=== PATIENT | female | born 1980 | race Two or more races ===

== ENCOUNTER 2018-05-30 12:00 | Emergency (ER) | payer SELFPAY ==
--- NOTE | 2018-05-30 12:12 | EDPHY ---
H & P Stated Complaint: CP x 1 day Time Seen by Provider: 05/30/18 12:09 HPI/ROS: CHIEF COMPLAINT: Epigastric pain HISTORY OF PRESENT ILLNESS: The patient presents to the ED with a 1 day history of epigastric pain. The patient's symptoms began earlier today. She denies any history of exertional chest pain or shortness of breath. She denies any symptoms of dyspepsia. She denies pleuritic chest pain. She denies asymmetric calf pain or swelling. The patient denies significant past medical history. She denies smoking history. She denies any significant family history. The patient was seen at [facility] and referred to the emergency department for further risk stratification. REVIEW OF SYSTEMS: A comprehensive 10 point review of systems is otherwise negative aside from elements mentioned in the history of present illness. Source: Patient - Medical/Surgical History Hx Asthma: No Hx Chronic Respiratory Disease: No Hx Diabetes: No Hx Cardiac Disease: No Hx Renal Disease: No Hx Cirrhosis: No Hx Alcoholism: No Hx HIV/AIDS: No Hx Splenectomy or Spleen Trauma: No Other PMH: denies. - Social History Smoking Status: Never smoked - Physical Exam Exam: General Appearance: Alert, no distress Eyes: Pupils equal and round no pallor or injection ENT, Mouth: Mucous membranes moist Respiratory: There are no retractions, lungs are clear to auscultation Cardiovascular: Regular rate and rhythm Gastrointestinal: Abdomen is soft and nontender, no masses, bowel sounds normal Neurological: A&O, normal motor function, normal sensory exam, normal cranial nerves Skin: Warm and dry, no rashes Musculoskeletal: Neck is supple nontender Extremities: symmetrical, full range of motion Constitutional: Initial Vital Signs Temperature (C) 36.8 C 05/30/18 12:06 Heart Rate 69 05/30/18 12:06 Respiratory Rate 18 05/30/18 12:06 Blood Pressure 110/75 05/30/18 12:06 O2 Sat (%) 97 05/30/18 12:06 O2 Delivery Mode Room Air Allergies/Adverse Reactions: No Known Allergies Allergy (Unverified 05/30/18 12:05) Home Medications: Medication Instructions Recorded NK [No Known Home Meds] 05/30/18 Medical Decision Making - Diagnostics EKG Interpretation: EKG: Complete interpretation has been separately recorded in the [email or web address] archive. Summary impression: Sinus rhythm, rate 58 Imaging Results: Imaging Impressions Chest X-Ray 05/30/18 13:19 Impression: Mild peribronchial thickening suggesting airways disease/bronchitis. ED Course/Re-evaluation: HEART score = 0 EKG in emergency department demonstrates no evidence of ischemia. Patient is given a GI cocktail for atypical chest pain. Patient's D-dimer is negative which I feel adequately excludes pulmonary embolism. The patient's troponin is normal. The patient is felt to be low risk for acute coronary syndrome. The patient will be advised to try ranitidine as I believe she may be experiencing symptoms of gastroesophageal reflux. The patient will also be referred to Cardiology for consideration of a treadmill stress test. Patient is advised to return to the ED for markedly worsening symptoms or other concerns. Differential Diagnosis: Differential diagnosis considered includes gastroesophageal reflux disease, cholelithiasis, acute coronary syndrome, pericarditis - Data Points Laboratory Results: Laboratory Results 05/30/18 12:15 05/30/18 12:15 05/30/18 05/30/18 05/30/18 12:18 12:15 12:15 WBC RBC Hgb Hct MCV MCH MCHC RDW Plt Count MPV Neut % (Auto) Lymph % (Auto) Duchesne % (Auto) Eos % (Auto) Baso % (Auto) Nucleat RBC Rel Count Absolute Neuts (auto) Absolute Lymphs (auto) Absolute Monos (auto) Absolute Eos (auto) Absolute Basos (auto) Absolute Nucleated RBC Immature Gran % Immature Gran # D-Dimer < 0.27 ug/mLFEU ug/mLFEU (0.00-0.50) Sodium 136 mEq/L mEq/L (135-145) Potassium 4.3 mEq/L mEq/L (3.3-5.0) Chloride 104 mEq/L mEq/L (97-110) Carbon Dioxide 25 mEq/l mEq/l (22-31) Anion Gap 7 mEq/L mEq/L (6-14) BUN 12 mg/dL mg/dL (7-23) Creatinine 0.6 mg/dL mg/dL (0.6-1.0) Estimated GFR > 60 Glucose 85 mg/dL mg/dL (70-100) Calcium 9.7 mg/dL mg/dL (8.5-10.4) Total Bilirubin 0.6 mg/dL mg/dL (0.1-1.4) Conjugated Bilirubin 0.1 mg/dL mg/dL (0.0-0.5) Unconjugated Bilirubin 0.5 mg/dL mg/dL (0.0-1.1) AST 40 IU/L IU/L (14-46) ALT 51 IU/L IU/L (9-52) Alkaline Phosphatase 100 IU/L IU/L (38-126) POC Troponin I 0.00 ng/mL ng/mL (0.00-0.08) Troponin I < 0.012 ng/mL ng/mL (0.000-0.034) Total Protein 7.6 g/dL g/dL (6.3-8.2) Albumin 4.4 g/dL g/dL (3.5-5.0) Lipase 126 IU/L IU/L (23-300) 05/30/18 12:15 WBC 7.28 10^3/uL 10^3/uL (3.80-9.50) RBC 4.49 10^6/uL 10^6/uL (4.18-5.33) Hgb 13.7 g/dL g/dL (12.6-16.3) Hct 38.9 % % (38.0-47.0) MCV 86.6 fL fL (81.5-99.8) MCH 30.5 pg pg (27.9-34.1) MCHC 35.2 g/dL g/dL (32.4-36.7) RDW 12.2 % % (11.5-15.2) Plt Count 340 10^3/uL 10^3/uL (150-400) MPV 10.4 fL fL (8.7-11.7) Neut % (Auto) 50.3 % % (39.3-74.2) Lymph % (Auto) 38.5 % % (15.0-45.0) Duchesne % (Auto) 8.2 % % (4.5-13.0) Eos % (Auto) 2.2 % % (0.6-7.6) Baso % (Auto) 0.5 % % (0.3-1.7) Nucleat RBC Rel Count 0.0 % % (0.0-0.2) Absolute Neuts (auto) 3.66 10^3/uL 10^3/uL (1.70-6.50) Absolute Lymphs (auto) 2.80 10^3/uL 10^3/uL (1.00-3.00) Absolute Monos (auto) 0.60 10^3/uL 10^3/uL (0.30-0.80) Absolute Eos (auto) 0.16 10^3/uL 10^3/uL (0.03-0.40) Absolute Basos (auto) 0.04 10^3/uL 10^3/uL (0.02-0.10) Absolute Nucleated RBC 0.00 10^3/uL 10^3/uL (0-0.01) Immature Gran % 0.3 % % (0.0-1.1) Immature Gran # 0.02 10^3/uL 10^3/uL (0.00-0.10) D-Dimer Sodium Potassium Chloride Carbon Dioxide Anion Gap BUN Creatinine Estimated GFR Glucose Calcium Total Bilirubin Conjugated Bilirubin Unconjugated Bilirubin AST ALT Alkaline Phosphatase POC Troponin I Troponin I Total Protein Albumin Lipase Medications Given: Discontinued Medications Al Hydroxide/Mg Hydroxide (Maalox Susp) 30 ml PO ONCE ONE Stop: 05/30/18 12:19 Last Admin: 05/30/18 12:29 Dose: 30 ml Hyoscyamine Sulfate (Levsin, Hyomax-Sl) 0.25 mg PO ONCE ONE Stop: 05/30/18 12:19 Last Admin: 05/30/18 12:29 Dose: 0.25 mg Lidocaine (Lidocaine 2% Viscous) 15 ml PO ONCE ONE Stop: 05/30/18 12:19 Last Admin: 05/30/18 12:29 Dose: 15 ml Point of Care Test Results: Chemistry 05/30/18 12:18 POC Troponin I 0.00 ng/mL ng/mL (0.00-0.08) Departure - Departure Disposition: Home, Routine, Self-Care Clinical Impression: Chest pain Condition: Good Instructions: Chest Pain (ED) Additional Instructions: 1. Based upon the testing done in the Emergency Department today we see no evidence of a heart attack. 2. We are unable to fully exclude coronary artery disease based upon the testing available in the Emergency Department. 3. For this reason, we would like you to be seen by cardiology for consideration of additional testing within the next 3 days. 4. Please contact the infusion therapy nurse you have been referred to schedule this appointment as soon as possible. Their offices are typically open from 8:30am- 5pm M-F. 5. Please return to the Emergency Department immediately for any recurrent chest pain, difficulty breathing or other concerns. 6. Please begin taking Zantac 150 mg (2) times a day. This medication is available at a pharmacy or a grocery store. Referrals: Ashely Rowe MD [Medical Doctor] - As per Instructions
[2018-05-30] MEDS ORDERED: LIDOCAINE 2% VISCOUS 15 ML UDCUP PO ONE (12:18)
[2018-05-30] MEDS ORDERED: MAG HYDROX/AL HYDROX/SIMETH 30 ML UDCUP PO ONE (12:18)
[2018-05-30] MEDS ORDERED: HYOSCYAMINE SULFATE 0.125 MG TAB PO ONE (12:18)
--- NOTE | 2018-05-30 12:22 | CPEKG ---
Test Reason : OPEN Blood Pressure : / mmHG Vent. Rate : 058 BPM Atrial Rate : 057 BPM P-R Int : 145 ms QRS Dur : 080 ms QT Int : 402 ms P-R-T Axes : 036 035 045 degrees QTc Int : 395 ms Sinus rhythm Confirmed by Sebastián Benson ([id number]) on 05/30/2018 12:21:43 PM Referred By: Confirmed By:Sebastián Benson
[2018-05-30 12:25] LABS: PLATELET COUNT 340 10^3/uL (150-400)
[2018-05-30 13:54] VITALS: BP 104/71
== END 2018-05-30 13:57 | disposition home or self-care (01) ==
DX: R07.9 Chest pain, unspecified (principal)
CPT/HCPCS: 84484-PO